=== PATIENT | male | born 1995 | race African-American/Black ===

== ENCOUNTER 2022-09-23 14:45 | Emergency (ER) | payer OTHER, SELFPAY | END 2022-09-23 16:00 | disposition home or self-care (01) | LOC: MADERS 14:45 | DX: L03.116 Cellulitis of left lower limb (principal); F17.210 Nicotine dependence, cigarettes, uncomplicated; W54.1XXA Struck by dog, initial encounter; Y93.01 Activity, walking, marching and hiking; Z79.899 Other long term (current) drug therapy ==